=== PATIENT | female | born 1945 | race Caucasian/White ===

== ENCOUNTER 2020-01-07 06:02 | Inpatient (IN) | payer MEDICARE ==
[~2020-01-07] VITALS: Ht 167.6 cm; Wt 66.3 kg
[2020-01-07] MEDS ORDERED: SODIUM CHLORIDE 0.9% 1,000ML IVBOLUS ONE (06:30)
[2020-01-07] MEDS ORDERED: SODIUM CHLORIDE FLUSH 10ML SYR IVF ONE (06:30)
[2020-01-07] MEDS ORDERED: SODIUM CHLORIDE 0.9% 1,000 ML IV ONE (06:30)
[2020-01-07] MEDS ORDERED: ACETAMINOPHEN 325 MG TABLET PO ONE (06:30)
[2020-01-07] MEDS ORDERED: ACETAMINOPHEN 325 MG TABLET ONE (06:33)
[2020-01-07 06:44] LABS: BASOPHILS % (AUTO) 1 % (0-1); EOSINOPHILS % (AUTO) 1 % (1-7); LYMPHOCYTES % (AUTO) 6 % (22-44); MEAN CORPUSCULAR HEMOGLOBIN 27.6 pg (27.0-34.8); MEAN CORPUSCULAR HGB CONC 32.7 g/dL (32.4-35.8); MEAN PLATELET VOLUME 6.5 fL (7.4-10.4); MONOCYTES % (AUTO) 9 % (2-9); NEUTROPHILS % (AUTO) 83 % (42-75); PLATELET COUNT 333 x10^3/uL (130-400); RED BLOOD COUNT 4.12 x10^6/uL (3.82-5.3); RED CELL DISTRIBUTION WIDTH 15.3 % (9.6-15.2)
[2020-01-07 06:59] LABS: ALANINE AMINOTRANSFERASE 12 U/L (12-78); ALBUMIN 2.2 g/dL (3.4-5.0); ANION GAP 5 mmol/L (5-15); CALCIUM 8.3 mg/dL (8.5-10.1); CHLORIDE 103 mmol/L (98-107); CREATININE 0.95 mg/dL (0.55-1.02)
--- NOTE | 2020-01-07 07:00 | NUR ---
REPORT TO KEMAL LANDAVERDE
[2020-01-07 07:03] LABS: ALKALINE PHOSPHATASE 82 U/L (45-117); BILIRUBIN,TOTAL 0.5 mg/dL (0.2-1.0); TOTAL PROTEIN 5.5 g/dL (6.4-8.2); TROPONIN I < 0.015 ng/mL (0.000-0.045)
[2020-01-07 07:37] LABS: MD SCAN
[2020-01-07] MEDS ORDERED: AZITHROMYCIN 500 MG in SODIUM CHLORIDE 0.9% 250 ML IVPB ONE (08:00)
[2020-01-07] MEDS ORDERED: CEFTRIAXONE PMX 1GM/50ML 50 ML IVPB ONE (08:00)
[2020-01-07] MEDS ORDERED: CEFTRIAXONE PMX 1GM/50ML 50 ML ONE (08:09)
[2020-01-07] MEDS ORDERED: SODIUM CHLORIDE FLUSH 10ML SYR IVF PRN (08:30)
[2020-01-07] MEDS ORDERED: ACETAMINOPHEN 325 MG TABLET PO PRN (10:00)
[2020-01-07] MEDS ORDERED: LABETALOL 5MG/ML, 20ML IVPush PRN (10:00)
[2020-01-07] MEDS ORDERED: POTASSIUM CHLORIDE 40 MEQ in SODIUM CHLORIDE 0.9% 500 ML IV ONE (10:00)
[2020-01-07] MEDS ORDERED: ONDANSETRON 2MG/ML, 2ML IVPush PRN (10:00)
[2020-01-07 10:16] LABS: FREE T4 (FREE THYROXINE) 1.32 ng/dL (0.76-1.46)
[2020-01-07] MEDS: FAMOTIDINE 20 MG/2 ML IVPush SCH (10:58)
[2020-01-07 11:58] LABS: MICROSCOPIC NOT IND
[2020-01-07] MEDS: GABAPENTIN 100 MG CAPSULE PO SCH ×2 (16:38→20:17)
[2020-01-07] MEDS: OXYcodone IR 5MG TABLET PO PRN (18:02)
[2020-01-07] MEDS ORDERED: [UNRECOGNIZED DRUG - REMARK] MC SCH (19:30)
[2020-01-07 20:11] VITALS: BP 155/78
[2020-01-07] MEDS: ENOXAPARIN 60 MG/0.6 ML SQ SCH (20:17)
[2020-01-07] MEDS: LISINOPRIL 10 MG TABLET PO SCH (20:17)
[2020-01-07] MEDS: CIPROFLOXACIN/HYDROCORTISONE EAR SUSP 0.2-1%, 10ML RIGHT EAR SCH (21:22)
[2020-01-08] MEDS: OXYcodone IR 5MG TABLET PO PRN ×2 (00:02→09:22)
[2020-01-08 01:54] VITALS: BP 159/82
[2020-01-08 05:26] LABS: BASOPHILS % (AUTO) 1 % (0-1); EOSINOPHILS % (AUTO) 2 % (1-7); LYMPHOCYTES % (AUTO) 11 % (22-44); MEAN CORPUSCULAR HEMOGLOBIN 27.7 pg (27.0-34.8); MEAN CORPUSCULAR HGB CONC 32.5 g/dL (32.4-35.8); MEAN PLATELET VOLUME 6.8 fL (7.4-10.4); MONOCYTES % (AUTO) 7 % (2-9); NEUTROPHILS % (AUTO) 78 % (42-75); PLATELET COUNT 272 x10^3/uL (130-400); RED BLOOD COUNT 3.85 x10^6/uL (3.82-5.3)
[2020-01-08 05:28] LABS: MD NO
[2020-01-08 05:32] LABS: ANION GAP 4 mmol/L (5-15); CALCIUM 8.2 mg/dL (8.5-10.1); CHLORIDE 104 mmol/L (98-107); CREATININE 0.64 mg/dL (0.55-1.02)
[2020-01-08 05:45] VITALS: BP 149/87
[2020-01-08] MEDS ORDERED: POTASSIUM CHLORIDE 20 MEQ TAB.ER.PRT PO ONE (07:00)
[2020-01-08] MEDS: LISINOPRIL 10 MG TABLET PO SCH ×2 (09:00→20:38)
[2020-01-08] MEDS: FLUTICASONE/VILANTEROL 100-25MCG/INH INH SCH (09:00)
[2020-01-08 09:09] VITALS: BP 148/79
[2020-01-08] MEDS: SERTRALINE 50MG TABLET PO SCH (09:21)
[2020-01-08] MEDS: GABAPENTIN 100 MG CAPSULE PO SCH ×3 (09:21→20:38)
[2020-01-08] MEDS: ENOXAPARIN 60 MG/0.6 ML SQ SCH ×2 (09:21→20:38)
[2020-01-08] MEDS: FAMOTIDINE 20 MG/2 ML IVPush SCH (09:22)
[2020-01-08] MEDS: CIPROFLOXACIN/HYDROCORTISONE EAR SUSP 0.2-1%, 10ML RIGHT EAR SCH ×2 (09:23→20:40)
[2020-01-08 12:51] VITALS: BP 159/88
[2020-01-08 20:25] VITALS: BP 152/89
[2020-01-08] MEDS ORDERED: MELATONIN 5 MG TABLET PO PRN (23:00)
[2020-01-09] MEDS: OXYcodone IR 5MG TABLET PO PRN (00:26)
[2020-01-09 00:59] VITALS: BP 164/90
[2020-01-09] MEDS: LORazepam 2 MG/ML, 1ML IVPush PRN ×2 (01:01→05:45)
[2020-01-09] MEDS ORDERED: TEMAZEPAM 15 MG CAPSULE PO ONE (04:00)
[2020-01-09 04:26] LABS: BASOPHILS % (AUTO) 1 % (0-1); EOSINOPHILS % (AUTO) 2 % (1-7); LYMPHOCYTES % (AUTO) 14 % (22-44); MD NO; MEAN CORPUSCULAR HEMOGLOBIN 27.6 pg (27.0-34.8); MEAN PLATELET VOLUME 6.5 fL (7.4-10.4); MONOCYTES % (AUTO) 9 % (2-9); NEUTROPHILS % (AUTO) 74 % (42-75); PLATELET COUNT 280 x10^3/uL (130-400); RED BLOOD COUNT 4.03 x10^6/uL (3.82-5.3); RED CELL DISTRIBUTION WIDTH 14.8 % (9.6-15.2)
[2020-01-09 04:36] LABS: ALANINE AMINOTRANSFERASE 9 U/L (12-78); ALBUMIN 2.2 g/dL (3.4-5.0); ANION GAP 4 mmol/L (5-15); CALCIUM 8.4 mg/dL (8.5-10.1); CHLORIDE 107 mmol/L (98-107); CREATININE 0.65 mg/dL (0.55-1.02)
[2020-01-09 04:39] LABS: ALKALINE PHOSPHATASE 85 U/L (45-117); BILIRUBIN,TOTAL 0.5 mg/dL (0.2-1.0); TOTAL PROTEIN 5.3 g/dL (6.4-8.2)
[2020-01-09] MEDS: FLUTICASONE/VILANTEROL 100-25MCG/INH INH SCH (06:55)
[2020-01-09 07:40] VITALS: BP 158/93
[2020-01-09] MEDS: SERTRALINE 50MG TABLET PO SCH (09:29)
[2020-01-09] MEDS: ENOXAPARIN 60 MG/0.6 ML SQ SCH ×2 (09:29→21:48)
[2020-01-09] MEDS: FAMOTIDINE 20 MG/2 ML IVPush SCH (09:29)
[2020-01-09] MEDS: POTASSIUM CHLORIDE 20 MEQ TAB.ER.PRT PO SCH ×2 (09:29→17:13)
[2020-01-09] MEDS: LISINOPRIL 10 MG TABLET PO SCH (09:30)
[2020-01-09] MEDS: CIPROFLOXACIN/HYDROCORTISONE EAR SUSP 0.2-1%, 10ML RIGHT EAR SCH ×2 (09:30→21:57)
[2020-01-09] MEDS: GABAPENTIN 100 MG CAPSULE PO SCH (09:30)
[2020-01-09] MEDS ORDERED: INSTRUCTION SEE COMMENTS XX PRN (12:00)
[2020-01-09] MEDS ORDERED: QUETIAPINE 25MG TABLET PO PRN (12:00)
[2020-01-09] MEDS ORDERED: PHARMACY INSTRUCTION MC PRN (12:00)
[2020-01-09 12:58] VITALS: BP 166/95
[2020-01-09] MEDS ORDERED: LABETALOL 5MG/ML, 20ML IVPush PRN (13:00)
[2020-01-09 18:47] VITALS: BP 143/82
[2020-01-09] MEDS ORDERED: QUETIAPINE 25MG TABLET PO SCH (21:00)
[2020-01-09] MEDS: LISINOPRIL 20 MG TABLET PO SCH (21:45)
[2020-01-10 05:41] LABS: BASOPHILS % (AUTO) 1 % (0-1); EOSINOPHILS % (AUTO) 1 % (1-7); LYMPHOCYTES % (AUTO) 10 % (22-44); MEAN CORPUSCULAR HEMOGLOBIN 27.2 pg (27.0-34.8); MEAN CORPUSCULAR HGB CONC 32.6 g/dL (32.4-35.8); MEAN PLATELET VOLUME 6.8 fL (7.4-10.4); MONOCYTES % (AUTO) 9 % (2-9); NEUTROPHILS % (AUTO) 79 % (42-75); PLATELET COUNT 304 x10^3/uL (130-400); RED BLOOD COUNT 4.72 x10^6/uL (3.82-5.3); RED CELL DISTRIBUTION WIDTH 15.1 % (9.6-15.2)
[2020-01-10 05:51] LABS: MD NO
[2020-01-10 05:53] LABS: ALBUMIN 2.4 g/dL (3.4-5.0); ANION GAP 8 mmol/L (5-15); CHLORIDE 106 mmol/L (98-107)
[2020-01-10 05:57] LABS: ALANINE AMINOTRANSFERASE 12 U/L (12-78); ALKALINE PHOSPHATASE 93 U/L (45-117); BILIRUBIN,TOTAL 0.6 mg/dL (0.2-1.0); CREATININE 0.66 mg/dL (0.55-1.02); TOTAL PROTEIN 5.8 g/dL (6.4-8.2)
[2020-01-10] MEDS: GABAPENTIN 100 MG CAPSULE PO PRN ×2 (06:52→14:33)
[2020-01-10] MEDS ORDERED: FAMOTIDINE 40 MG TABLET ONE (08:51)
[2020-01-10] MEDS: LISINOPRIL 20 MG TABLET PO SCH ×2 (08:53→09:00)
[2020-01-10] MEDS: SERTRALINE 50MG TABLET PO SCH ×2 (08:53→09:00)
[2020-01-10] MEDS: FAMOTIDINE 20 MG TABLET PO SCH ×2 (08:54→09:00)
[2020-01-10] MEDS: CIPROFLOXACIN/HYDROCORTISONE EAR SUSP 0.2-1%, 10ML RIGHT EAR SCH (08:57)
[2020-01-10] MEDS: ENOXAPARIN 60 MG/0.6 ML SQ SCH (08:57)
[2020-01-10 09:09] VITALS: BP 156/100
[2020-01-10] MEDS: FLUTICASONE/VILANTEROL 100-25MCG/INH INH SCH (09:46)
[2020-01-10] MEDS ORDERED: SERT50TA28 PO (10:11)
[2020-01-10] MEDS ORDERED: CIPR10DR RIGHT EAR (10:11)
[2020-01-10] MEDS ORDERED: LISI-170 PO (10:11)
[2020-01-10] MEDS ORDERED: GABA-826 PO (10:11)
[2020-01-10] MEDS ORDERED: RIVA1TAB PO (10:11)
[2020-01-10 13:14] VITALS: BP 148/94
== END 2020-01-10 16:44 | disposition home health service (06) | DRG 91 ==
LOC: ED 09:06 → CCU 09:32 → 5SO 18:16
PROVIDERS: ADMIT Hospitalist; ATTEND Hospitalist
DX: G96.08 Other cranial cerebrospinal fluid leak (principal); J96.91 Respiratory failure, unspecified with hypoxia; J98.11 Atelectasis; Z88.8 Allergy status to other drugs, medicaments and biological substances; D72.829 Elevated white blood cell count, unspecified; F17.200 Nicotine dependence, unspecified, uncomplicated; E87.6 Hypokalemia; D64.9 Anemia, unspecified; G62.9 Polyneuropathy, unspecified; G89.29 Other chronic pain; I10 Essential (primary) hypertension; I27.20 Pulmonary hypertension, unspecified; J44.9 Chronic obstructive pulmonary disease, unspecified; R29.6 Repeated falls; G93.89 Other specified disorders of brain; Z90.710 Acquired absence of both cervix and uterus
CPT/HCPCS: 36415; 70450; 70486; 71045; 72190; 80048; 80053; 81003; 82962; 83605; 83735; 83880; 84100; 84145; 84439; 84443; 84484; 85025; 87040; 87081; 93005; 93306; 93880; 93970; 94640; G0378; J0696; J1650; J3480; J2060; J7030; J7040